=== PATIENT | female | born 1975 | race Hispanic/Latino ===

== ENCOUNTER 2017-10-05 20:43 | Emergency (ER) | payer BC, OTHER ==
--- NOTE | 2017-10-05 21:50 | ED PDOC ---
HPI: General Adult Time Seen by Provider: 10/05/17 20:58 Chief Complaint (Nursing): ENT Problem Chief Complaint (Provider): throat swelling History Per: Patient History/Exam Limitations: no limitations Onset/Duration Of Symptoms: Days (x8) Current Symptoms Are (Timing): Still Present Additional Complaint(s): Aparna Avila is a 42 year old female, with a past medical history of asthma , who presents to the emergency department for evaluation of a throat swelling onset for x8 days. Patient reports she had a x8 days ago and since then she feels like her throat is swollen. Patient states symptom is worst with laying down and wakes up feeling like she's choking. However, its alleviated during the day. Patient states she spoke with her OB who advised her to speak with her urban redevelopment specialist who advised her today to go to an ENT in the ER at [facility] but couldn't because it was too far. Patient was prescribed Percocet for surgical healing and states she is currently . Additionally patient reports an upper right back pain for which she also takes percocet, leg swelling that started after her surgery, and numbness in her right arm finger tips ongoing for x3 weeks. Patient does reports a previous history of neck problems. She denies any fever, chills, chest pain, cough or shortness of breath. No further medical complaints. PMD: her OBGYN Dr. Sheldon Coat Room Attendant: Dr. Us Past Medical History Reviewed: Historical Data, Nursing Documentation, Vital Signs Vital Signs: Last Vital Signs Temp 98.0 F 10/06/17 02:14 Pulse 55 L 10/06/17 02:14 Resp 18 10/06/17 02:14 BP 134/74 10/06/17 02:14 Pulse Ox 100 10/06/17 02:17 - Medical History PMH: Asthma - Surgical History Surgical History: - Family History Family History: States: Unknown Family Hx - Home Medications Home Medications: Ambulatory Orders Medication Instructions Recorded Methylprednisolone [Medrol Dose 4 mg PO ASDIR #21 tab 10/06/17 Pack (21 tabs)] - Allergies Allergies/Adverse Reactions: Allergies Allergy/AdvReac Type Severity Reaction Status Date / Time No Known Allergies Allergy Verified 10/05/17 20:47 Review of Systems ROS Statement: Except As Marked, All Systems Reviewed And Found Negative Constitutional: Negative for: Fever, Chills ENT: Positive for: Throat Swelling Cardiovascular: Negative for: Chest Pain Respiratory: Negative for: Cough, Shortness of Breath Musculoskeletal: Positive for: Back Pain (upper rt), Other (leg swelling) Neurological: Positive for: Numbness (right arm finger tips) Physical Exam - Reviewed Nursing Documentation Reviewed: Yes Vital Signs Reviewed: Yes - Physical Exam Appears: Positive for: Non-toxic, No Acute Distress Head Exam: Positive for: ATRAUMATIC, NORMAL INSPECTION, NORMOCEPHALIC Skin: Positive for: Normal Color, Warm, Dry Eye Exam: Positive for: Normal appearance, EOMI, PERRL ENT: Positive for: Normal ENT Inspection Neck: Positive for: Painless ROM Cardiovascular/Chest: Positive for: Regular Rate, Rhythm. Negative for: Murmur Respiratory: Positive for: Normal Breath Sounds. Negative for: Respiratory Distress Gastrointestinal/Abdominal: Positive for: Normal Exam, Soft. Negative for: Tenderness Back: Positive for: Normal Inspection Extremity: Positive for: Normal ROM (upper and lower extremities), Swelling ( mild swelling around ankles). Negative for: Calf Tenderness (or swelling) Neurologic/Psych: Positive for: Alert, Oriented. Negative for: Motor/Sensory Deficits - Laboratory Results Result Diagrams: 10/05/17 21:52 10/05/17 21:52 - ECG O2 Sat by Pulse Oximetry: 100 (RA) Pulse Ox Interpretation: Normal Medical Decision Making Medical Decision Making: Time: 20:58 Initial Impression: difficulty breathing from throat discomfort. Chronic paresthesia of the right arm. Leg swelling. Differential includes but not limited to CHF, asthma Initial Plan: --Neck soft tissue w/o contrast [CT] --B-Type Natriuretic Peptide --BMP --TSH --Troponin I --CBC w/ differential --D Dimer --Duplex Lower Extremity Vein Bilat [US] --Reevaluation -Advised patient concern for CT. 22:34 Duplex US FINDINGS: Right deep veins: Unremarkable. No DVT in the right common femoral, femoral, proximal deep femoral or popliteal veins. The veins demonstrate normal color flow, are normally compressible, with normal phasic flow and/or augmentation response. Right superficial veins: Unremarkable. No thrombus in the visualized right great saphenous vein. Left deep veins: Unremarkable. No DVT in the left common femoral, femoral, proximal deep femoral or popliteal veins. The veins demonstrate normal color flow, are normally compressible, with normal phasic flow and/or augmentation response. Left superficial veins: Unremarkable. No thrombus in the visualized left great saphenous vein. Soft tissues: No acute findings. No popliteal cyst. IMPRESSION: Normal bilateral lower extremity duplex venous ultrasound. 22:45 -Patient had highly elevated D Dimer. Angio chest CT ordered. 01:54 CT neck FINDINGS: NASOPHARYNX: Unremarkable. SUPRAHYOID NECK: Unremarkable oropharynx, oral cavity, parapharyngeal space and retropharyngeal space. INFRAHYOID NECK: Unremarkable larynx, hypopharynx, and supraglottic space. Vocal cords intact. MASS: None. GLANDS: Parotid and submandibular glands unremarkable. Normal size thyroid gland, without nodule. LYMPH NODES: Small, enlarged lymph nodes identified throughout the neck bilaterally the preponderance of which are 1 cm or less 4 likely infectious/ inflammatory. These are primarily at level IIa and IIb alonso chains. CERVICAL SPINE: No fracture or focal lesion. OTHER FINDINGS: None. IMPRESSION: No acute findings related to/accounting for the clinical presentation. Additional benign and/or incidental findings described above. 01:57 CT Chest FINDINGS: PULMONARY ARTERIES: Dilated main pulmonary artery 3.7 cm consistent with pulmonary arterial hypertension. . No pulmonary embolism. AORTA: No acute findings. No thoracic aortic aneurysm. LUNGS: Unremarkable. No nodule, mass or pulmonary consolidation. PLEURAL SPACES: Unremarkable. No effusion or pneumothorax. HEART: Unremarkable. No cardiomegaly. No significant pericardial effusion. LYMPH NODES: No lymphadenopathy. BONES, CHEST WALL: Unremarkable. No fracture or destructive lesion OTHER FINDINGS: Unremarkable. IMPRESSION: Unremarkable CT pulmonary angiogram. No pulmonary embolus. 0210 EKG: sinus bradycardia at 56BMP. No ST changes. Normal QRS. ----- Scribe Attestation: Documented by Brad Mccrary and Franci Dasilva, acting as scribes for Leonie Aleman MD. Provider Scribe Attestation: All medical record entries made by the Maribelibe were at my direction and personally dictated by me. I have reviewed the chart and agree that the record accurately reflects my personal performance of the history, physical exam, medical decision making, and the department course for this patient. I have also personally directed, reviewed, and agree with the discharge instructions and disposition. Disposition - Clinical Impression Clinical Impression: Sensation of swollen throat, Dyspnea - Patient ED Disposition Is Patient to be Admitted: No Doctor Will See Patient In The: Office Counseled Patient/Family Regarding: Studies Performed, Diagnosis, Need For Followup - Disposition Referrals: Tyler Steve MD [Staff Provider] - Nitish Thomas MD [Staff Provider] - Disposition: Routine/Home Disposition Time: 02:00 Condition: GOOD Additional Instructions: Take your medications as instructed. Follow up with your PCP, your urban redevelopment specialist , and your ENT in 2-3 days. APARNA AVILA, thank you for letting us take care of you today. Your provider was Leonie Aleman MD and you were treated for THROAT SWELLING. The emergency medical care you received today was directed at your acute symptoms. If you were prescribed any medication, please fill it and take as directed. It may take several days for your symptoms to resolve. Return to the Emergency Department if your symptoms worsen, do not improve, or if you have any other problems. Please contact your doctor or call one of the physicians/clinics you have been referred to that are listed on the Patient Visit Information form that is included in your discharge packet. Bring any paperwork you were given at discharge with you along with any medications you are taking to your follow up visit. Our treatment cannot replace ongoing medical care by a primary care provider outside of the emergency department. Thank you for allowing the [facility] team to be part of your care today. If you had an X-Ray or CT scan: A Radiologist will review the ED reading if any change in treatment is needed we will contact you. Prescriptions: Methylprednisolone [Medrol Dose Pack (21 tabs)] 4 mg PO ASDIR #21 tab Instructions: Shortness of Breath (Dyspnea) (DC)
[2017-10-05 21:56] LABS: BASO # 0.1 K/uL (0.0-0.2); BASO % 0.9 % (0.0-2.0); EOS # 0.4 K/uL (0.0-0.7); EOS % 3.8 % (0.0-4.0); HEMOGLOBIN 11.1 g/dL (12.0-16.0); LYMPH # 2.7 K/uL (1.0-4.3); LYMPH % 24.2 % (20.0-40.0); MEAN CELL VOLUME 88.5 fl (81.0-99.0); MEAN CORPUSCULAR HEMOGLOBIN 29.5 pg (27.0-31.0); MEAN CORPUSCULAR HGB CONC 33.3 g/dL (33.0-37.0); MEAN PLATELET VOLUME 7.5 fl (7.2-11.7); MONO # 0.9 K/uL (0.0-0.8); MONO % 8.1 % (0.0-10.0); NEUT # 7.1 K/uL (1.8-7.0); RBC 3.77 Mil/uL (3.80-5.20); RED CELL DISTRIBUTION WIDTH 14.2 % (11.5-14.5); WHITE BLOOD COUNT 11.3 K/uL (4.8-10.8)
[2017-10-05 22:05] LABS: BLOOD UREA NITROGEN 16 mg/dl (7-17); CALCIUM 8.8 mg/dL (8.4-10.2); GFR NON-AFRICAN AMERICAN > 60
[2017-10-05 22:16] LABS: B-TYPE NATRIURETIC PEPTIDE 379 pg/ml (0-450)
[2017-10-05] MEDS ORDERED: Sodium Chloride 0.9% 50 ML IV ONE (23:15)
[2017-10-05] MEDS ORDERED: Iodixanol 320 MG/ML 100 ML BOTTLE IV ONE (23:15)
--- NOTE | 2017-10-06 01:56 | CT ---
Date of service: 10/05/2017 PROCEDURE: CT NECK WITHOUT CONTRAST HISTORY: throat swelling COMPARISON: None. TECHNIQUE: CT of the neck without intravenous contrast. Coronal and sagittal reformats generated. Radiation dose: DLP 327.44 mGy-cm This CT exam was performed using one or more of the following dose reduction techniques: Automated exposure control, adjustment of the mA and/or kV according to patient size, and/or use of iterative reconstruction technique. FINDINGS: NASOPHARYNX: Unremarkable. SUPRAHYOID NECK: Unremarkable oropharynx, oral cavity, parapharyngeal space and retropharyngeal space. INFRAHYOID NECK: Unremarkable larynx, hypopharynx, and supraglottic space. Vocal cords intact. MASS: None. GLANDS: Parotid and submandibular glands unremarkable. Normal size thyroid gland, without nodule. LYMPH NODES: Small, enlarged lymph nodes identified throughout the neck bilaterally the preponderance of which are 1 cm or less 4 likely infectious/ inflammatory. These are primarily at level IIa and IIb alonso chains. CERVICAL SPINE: No fracture or focal lesion. OTHER FINDINGS: None. IMPRESSION: No acute findings related to/accounting for the clinical presentation. Additional benign and/or incidental findings described above.
--- NOTE | 2017-10-06 01:59 | CT ---
Date of service: 10/05/2017 PROCEDURE: CT Chest with contrast (Pulmonary Angiogram) HISTORY: dyspnea COMPARISON: None available. TECHNIQUE: Axial computed tomography images were obtained of the chest in the pulmonary arterial phase of enhancement. Coronal and sagittal reformatted images were created and reviewed. Intravenous contrast dose: 95 cc Visipaque 320. Mean Hounsfield unit values in the main pulmonary artery: 272.25. Radiation dose: Total exam DLP = 333.13 atkins mGy-cm. This CT exam was performed using one or more of the following dose reduction techniques: Automated exposure control, adjustment of the mA and/or kV according to patient size, and/or use of iterative reconstruction technique. FINDINGS: PULMONARY ARTERIES: Dilated main pulmonary artery 3.7 cm consistent with pulmonary arterial hypertension. . No pulmonary embolism. AORTA: No acute findings. No thoracic aortic aneurysm. LUNGS: Unremarkable. No nodule, mass or pulmonary consolidation. PLEURAL SPACES: Unremarkable. No effusion or pneumothorax. HEART: Unremarkable. No cardiomegaly. No significant pericardial effusion. LYMPH NODES: No lymphadenopathy. BONES, CHEST WALL: Unremarkable. No fracture or destructive lesion OTHER FINDINGS: Unremarkable. IMPRESSION: Unremarkable CT pulmonary angiogram. No pulmonary embolus.
[2017-10-06] MEDS ORDERED: Dexamethasone 10 MG in Sodium Chloride 0.9% 50 ML IV ONE (02:06)
[2017-10-06 02:15] VITALS: BP 134/74; PULSE 55; RESP 18; TEMP 98
[2017-10-06 02:17] VITALS: O2SAT 100
--- NOTE | 2017-10-06 02:31 | US ---
Date of service: 10/05/2017 PROCEDURE: Bilateral lower extremity venous duplex Doppler. HISTORY: leg swelling COMPARISON: None available. TECHNIQUE: Bilateral common femoral, superficial femoral, popliteal and posterior tibial veins were evaluated. Flow was assessed with color Doppler, compressibility, assessment of phasic flow and augmentation response. FINDINGS: COMMON FEMORAL VEIN: Right CFV: Unremarkable. Left CFV: Unremarkable. SUPERFICIAL FEMORAL VEIN: Right SFV: Unremarkable. Left SFV: Unremarkable. POPLITEAL VEIN: Right Popliteal: Unremarkable. Left Popliteal: Unremarkable. POSTERIOR TIBIAL VEIN: Right PTV: Unremarkable. Left PTV: Unremarkable. OTHER FINDINGS: None. IMPRESSION: No evidence of deep venous thrombosis. Concordant findings (preliminary report) provided by [facility].
--- NOTE | 2017-10-06 14:45 | CARD ---
APPROVED REPORT Date of service: 10/05/2017 EKG Measurement Heart [id number] <Conclusion> Sinus bradycardia Otherwise normal ECG
== END 2017-10-06 02:37 | disposition home or self-care (01) ==
LOC: H.ER 20:43
DX: R07.0 Pain in throat (principal); R06.00 Dyspnea, unspecified
CPT/HCPCS: 70490; 71275; 80048; 83880; 84443; 84484; 85025; 85378; 93005; 93970; 96374; 99283; J1100; Q9967